=== PATIENT | female | born 2000 | race Hispanic/Latino ===

== ENCOUNTER 2025-01-31 09:22 | Emergency (ER) | payer OTHER, SELFPAY ==
--- NOTE | ~2025-01-31 | CT_ITS ---
EXAM: CT abdomen pelvis w con INDICATION: Pain. Bright red blood per rectum, 2 episodes. COMPARISONS: None. PROCEDURE: 100 mL of Isovue 300 was injected IV. Enteric contrast given. Dose reduction technique(s) used. FINDINGS: Lower chest: Lung bases are clear. Body wall: No abnormality demonstrated. ABDOMEN: Liver: Normal size and relatively homogeneous parenchyma. Possible mild fatty infiltrate. There is a tiny cyst near the dome. Gallbladder: No calcified gallstones. No bile duct dilatation. Spleen: Normal. Adrenals: Normal. Pancreas: No mass or adjacent stranding. Normal caliber duct. Kidneys: No calculus, mass or hydronephrosis. Aorta: Normal caliber. IVC: Normal. Retroperitoneum: No adenopathy. Stomach and visualized esophagus: No abnormality. PELVIS: Reproductive Organs: No pelvic mass. Bladder: No nodule or calculus. There is a urachal remnant. Colon: Collapsed from a abrupt point in the distal transverse colon all the way to the rectum. There are suggestion of wall edema. Small Bowel: No dilatation or wall thickening. Appendix: Normal. Mesentery: No adenopathy. Peritoneum: No free fluid or free air. Bones: No destructive lesion. IMPRESSION: The colon may just be collapsed in the pattern described. In the current clinical scenario, consideration should be given to ulcerative colitis. Reviewed, dictated and finalized at location A. IMPRESSION: The colon may just be collapsed in the pattern described. In the current clinic al scenario, consideration should be given to ulcerative colitis.
[2025-01-31 09:29] VITALS: BP 113/77; PULSE 76; RESP 14; TEMP 36.8; O2SAT 99
--- OUTSIDE RECORDS SUMMARY | 2025-01-31 09:49 | XMS_ITS | Data Portability ---
Author Organization [facility] Address [address] [place] [address] Assessment Encounter Date Assessment Date Assessment LastModified by Organization Details LastModified Time 11/17/2022 11/17/2022 Annual gynecological exam performed. Patient will come back in a year unless there are new symptoms. [email or web address] Not available 11/17/2022 10:26:35 04/11/2024 04/11/2024 Annual gynecological exam performed. Patient will come back in a year unless there are new symptoms. Not available 04/11/2024 16:37:14 Plan of Treatment Reminders Order Date Submit Date Provider Last Modified By Organization Details Last Modified Time Details Appointments None recorded . Lab None recorded . Referral None recorded . Procedures None recorded . Surgeries None recorded . Imaging None recorded . Medication Orders Fe 24 1 mg-20 mcg (24)/75 mg (4) tablet 025 04/11/19 25 [email or web address], [address], 5 16:11:20 Septemberl Fe 24 1 mg-20 mcg (24)/75 mg (4) tablet 023 02/18/20 23 [email or web address] [facility], [address] [place] [address], [address], 5 16:40:03 Septemberl Fe 24 1 mg-20 mcg (24)/75 mg (4) tablet 023 11/18/19 [id number], [address], [place], [place], [id number], 16:40:03 Patient TargetsNo targets recorded. Patient InstructionsNo instructions recorded. Reason for Referral None Reported. Results Created Date Observation Date Name Description Value Unit Range Abnormal Flag Note LastModifiedBy Organization Detail LastModifiedTime 11/18/1911/17/2022 CT/GC AND TRICH OMONA S VAGIN DIMA (RRNA ), URINE chlamydia trachomatis, PCR NEGATI VE negati ve Not Available [facility] (Lab) [address] [facility], [place], [address], 11/18/2022 13:56:22 11/18/19 23 11/17/2022 CT/GC AND TRICH OMONA S VAGIN DIMA (RRNA ), URINE neisseria gonorrhoeae, PCR NEGATI VE negati ve Not Available [facility] (Lab) [address] [facility], [place], [address], 11/18/2022 13:56:22 11/18/19 23 11/17/2022 CT/GC AND TRICH OMONA S VAGIN DIMA (RRNA ), URINE trichomonas vaginalis ribosomal RNA (rrna) NEGATI VE negati ve Not Available [facility] (Lab) [address] [facility], [place], [address], 11/18/2022 13:56:22 11/18/19 23 11/17/2022 pregn avinash test, urine HCG negati ve Not Available [facility] [address], [place], [address], 11/17/2022 12:22:19 04/11/19 25 04/11/2024 IMAGE GUIDE D PAP, REFLE X HPV IF ASCUS ONLY image guided Pap, reflex HPV ASCUS only SEE RESULT S BELOW CASE REPOR T: Cytol ogy Gynec ologi jeanette Repor t Case: [id number] Autho tysonn g Provi elias: Siria Samuels NP Colle cted: 04/11 1722 Order ing Locat ion: [place] Patho kaycee Recei chencho: 04/12 1007 First Tremaynee n: Sonya Saleh, CT Speci men: Scree giselle Pap - Image d, Cervi x STATE MENT OF ADEQU ACY: Satis facto ry for evalu ation Trans forma tion zone compo nent prese nt ----- ----- ----- ----- ----- ----- ----- ----- ----- ----- ----- ----- ----- ----- ----- ----- ----- ---- FINAL DIAGN OSIS: Negat salome for Intra epith elial Alcides oneill or Megan dunlap (NIL) . Shift in levi sugge stive of bacte rial vagin osis. Elect zeferino martino by ROGER Colbert on 2024 at 0817 [employer] ----- ----- ----- ----- ----- ----- ----- ----- ----- ----- ----- ----- ----- ----- ----- ----- ----- ---- COMME NT: This speci men was revie wed by a Cytot echno logis t and/o r Patho logis t (as indic ated in this repor t) after evalu ation using the Thinp rep Imagi ng Syste m. CLINI JEANETTE INFOR MATIO N: Menst rual Statu s: LMP (if appli cable ): Clini jeanette Histo ry/Pr eviou s Pap: Type of Neopl laxmi (if appli cable ): Signi fican t Clini jeanette Findi ngs: Other Histo ry: Hormo mikael (if appli cable ): PAP EDUCA ARTEM L NOTE: The Pap Test is a scree giselle test with an inher ent false negat salome rate. Liqui d-bas ed sampl ing august decre ase, but will not elimi caitlin, false negat salome resul ts. A negat salome resul t does not precl ude the prese nce and/o r devel opmen t of disea se, since the prese nce of abnor mal cells in the sampl e depen ds on the locat ion of the lesio n and sampl ing techn ique. Wilfred nued regul ar scree giselle is the best metho d of cance r preve ntion . If repor artur cytol ogic findi ng do not corre late with physi jeanette and/o r histo rical findi ngs, furth er inves tigat ion is recom molly d, as clini lokesh marquita nted. Not Available [facility] (Lab) [address] [facility], [place], [address], 04/19/2024 09:21:19 04/11/19 25 04/11/2024 TRICH OMONA S VAGIN DIMA (RRNA ) trichomonas vaginalis ribosomal RNA (rrna) Negati ve negati ve Not Available [facility] (Lab) [address] [facility], [place], [address], 04/19/2024 09:21:19 04/11/19 25 04/11/2024 CT/GC (EFRAIN) , THINP REP VIAL chlamydia trachomatis, PCR Negati ve negati ve Not Available [facility] (Lab) [address] [place], [address], 04/19/2024 09:21:20 04/11/19 25 04/11/2024 CT/GC (EFRAIN) , THINP REP VIAL neisseria gonorrhoeae, PCR Negati ve negati ve Not Available [facility] (Lab) [address] [place], [address], 04/19/2024 09:21:20 Result Notes None recorded. Medical Equipment None Reported. Allergies No known drug allergies Medications Name Sig Start Date Stop Date Status Note LastModified by Organization Details LastModified Time clindamycin HCl 300 mg capsule TAKE 1 CAPSULE BY MOUTH THREE TIMES DAILY FOR 10 DAYS 04/11 completed Not Available Not Available Not Available prednisone 20 mg tablet TAKE 2 TABLETS BY MOUTH DAILY FOR 5 DAYS 04/11 completed Not Available Not Available Not Available methylpredn isolone 4 mg tablets in a dose pack FOLLOW PACKAGE DIRECTION S 11/17 completed Not Available Not Available Not Available amoxicillin 875 mg-potassiu m clavulanate 125 mg tablet TAKE 1 TABLET BY MOUTH EVERY 12 HOURS FOR 10 DAYS active Not Available Not Available No t Available Aurovela 24 Fe 1 mg-20 mcg (24)/75 mg (4) tablet TAKE 1 TABLET BY MOUTH EVERY DAY active Not Available Not Available No t Available Vitals Date Recorded Body height Body mass index (BMI) Body weight Systolic And Diastolic Provider Name and Address Organization Details Last Updated DateTime 04/11/2024 154.94 cm 22.7 kg/m2 71522.52 g 106/73 mm[Hg] Laura Castanoney [facility] 04/11/2024 16:39:55 Date Recorded Body height Body mass index (BMI) Body mass index (BMI) [Percentile] Per age and sex Body weight Systolic And Diastolic Provider Name and Address Organization Details Last Updated DateTime 11/17/2022 154.94 cm 22.1 kg/m2 54 % 36039.3 1 g 109/72 mm[Hg] Elena [facility] 3 10:02:29 Date Recorded Body height Body mass index (BMI) [Percentile] Per age and sex Body mass index (BMI) Body weight Systolic And Diastolic Provider Name and Address Organization Details Last Updated DateTime 02/17/2023 154.94 cm 46 % 21.4 kg/m2 33493.9 4 g 104/72 mm[Hg] [facility] 09:16:57 Social History Question Answer Notes LastModified by Organizat ion Details LastModified Time Tobacco Smoking Status Never Smoker [facility] 02/17/2023 09:09:42 Are You Blind Or Do You Have Difficulty Seeing? No Information n ot available 11/17/2022 What Is Your Level Of Caffeine Consumption? Occasional Information not available 11/17/2022 How Much Tobacco Do You Chew? None Information not available 11/17/2022 In The 14 Days Before Symptom Onset, Have You Had Close Contact With A Laboratory-confirm ed COVID-19 While That Case Was Ill? No Information n ot available 11/17/2022 In The 14 Days Before Symptom Onset, Have You Had Close Contact With A Person Who Is Under Investigation For COVID-19 While That Person Was Ill? No Information not available 11/17/2022 Have You Been To An Area Known To Be High Risk For COVID-19? No Information not available 11/17/2022 Are You Deaf Or Do You Have Serious Difficulty Hearing? No Information not available 11/17/2022 What Type Of Diet Are You Following? REGULAR Information n ot available 11/17/2022 What Is The Highest Grade Or Level Of School You Have Completed Or The Highest Degree You Have Received? [id number] Information not available 11/17/2022 Are There Any Guns Present In Your Home? Yes Information not available 11/17/2022 Do You Use Protection During Sex? Always Information not available 11/17/2022 Do You Use Your Seat Belt Or Car Seat Routinely? Yes Information not available 11/17/2022 Do You Have Smoke And Carbon Monoxide Detectors In Your Home? Yes Information not available 11/17/2022 How Much Tobacco Do You Smoke? No Information not available 11/17/2022 Do You Use Sunscreen Routinely? Yes Information not available 11/17/2022 How Many Years Have You Smoked Tobacco? 0 Information not available 11/17/2022 Have You Used IV Drugs? No Information not available 11/17/2022 Sex: Unknown Functional Status Question Answer Note LastModified by Organizat ion Details LastModified Time Do you use any illicit or recreational drugs? No Information not available 11/17/2022 What is your level of alcohol consumption? None Information not available 11/17/2022 Are you able to walk independently without assistance or assistive devices? YESWOREST Information not available 11/17/2022 What is your occupation? Student Information not available 11/17/2022 What is your exercise level? Occasional Information not available 11/17/2022 Mental Status Question Answer Note LastModified by Organization D etails LastModified Time Do you feel stressed (tense, restless, nervous, or anxious, or unable to sleep at night)? [id number] Information not available 11/17/2022 Family History Relationship Description Onset Age of this Age Resolved Age Notes LastModified by Organization Details LastModified Time Maternal Grandmother Malignant neoplasm of breast Not available 2022 10:02:37 Maternal Grandmother Malignant neoplasm of cervix uteri Not available 10:02:37 Maternal Grandmother Malignant neoplasm of uterus Not available 2022 10:02:37 Maternal Grandmother Heart disease Not available 2022 10:02:37 Medical History Condition Response Allergies (Food, seasonal, environmental ) N Other N Breast Cancer N Drug/Latex Allergies/Reactions N Blood Transfusion N Dermatologic Disorders N Lung Disease N Defects or Inherited Disease N Breast Problem N Gestational Diabetes N Hematologic disorders N Anesthesia Complications N History of STI N Deep Vein Thrombosis N Polycystic ovary syndrome N Anxiety Disorder N Autoimmune disease N Arthritis N Infertility N Polyps N Acid Reflux (GERD) N History of abnormal pap N Cancer N Stroke N Varicosities N Neurologic/Epilepsy N Endometriosis N High Cholesterol N Headaches N Fibromyalgia N Kidney Disease N Heart Problems N Kidney or Bladder Problems N Thyroid Problems N GI Problems N Eating Disorder N Anemia N Art (IVF or FET) N Psychiatric Illness N Ovarian Cancer N Diabetes N Pulmonary (TB, Asthma) N Hepatitis/Liver Disease N No Past Medical History Y Eczema N Urinary Tract Infection N Abuse/Domestic Violence N Asthma N Trauma/Violence N Depression/ depression N Heart Disease N Pre-Eclampsia N Hypertension N Osteoporosis N Thrombophilias N Gynecological History Statement/Question Response Flow Moderate Date of LMP 04/03/2024 On BCP's at Conception? N N Was last menstrual period normal Y STIs/STDs N HPV Vaccine Y Duration of Flow (days) 5 Current Control Method None Are cycles usually normal Y Date of Last Colonoscopy Frequency of Cycle (Q days) 30 Sexually Active? Y Menses Monthly Y Age of first menstrual cycle 16 Date of Last Pap Smear Sexual Problems? N Desired Control Method BCPs LMP Approximate N Obstetrics History GPAL:G 0 P 0 0 0 0 Past Encounters Encounter ID Performer Location Encounter Start Date Encounter Closed Date Diagnosis/Indication Diagnosis SNOMED-CT Code Diagnosis ICD10 Code Diagnosis IMO Codes Diagnosis Note [id number] ALEJO [facility] [address] [address] 11/17/2022 09:54:27 11/17/2022 10:28:20 Gynecologic examination 61637004 Z01.419 Take Calcium with Vitamin D 1200mg daily if not receiving in daily diet. It is strongly advised to have an annual flu shot and up can obtain at most pharmacies . If you have not had a TDap shot in the last 10 years you should obtain one as well. Discussed with patient & provided with informatio n regarding Gardisil vaccine to prevent the 4 strains for HPV that cause cervical cancer. Encourage safe sexual practices, to use condoms and limit partners if not already in a monogamous relationsh ip. Do monthly self breast exams. BRCA testing is now available for patients with strong genetic history of female cancer. If interested contact the office. Engage in daily exercise of low impact aerobic exercise 45-60 minutes 4-5 times weekly. Avoid tobacco, illicit drugs, and alcohol. This lifestyle behavior pattern will lead to less health conditions and longer life span. If BMI greater than 25 weight watchers or dietary consult advised. Pap smear is not recommende d prior to the age of 21. If you have any concerns, pelvic, or vaginal problems we can discuss testing. Patient received above instructio ns, and questions have been answered. If you have any questions please call or respond to this email. Patient was made aware of the patient portal and may obtain a paper copy of today's plan if desired.Yoel p due age 23yoSTD Screen urine sentGeneti c Screen discussedC olon Screen naDexa Screen naRoutine Labs Javier discussed Contracept ion care management 904784068 Z30.9 Discussed all control options in great detail. Pt would like to start ocp. She is aware of the risks and benefits. She does not have any medical condition that is contraindi cated with the use of estrogen containing control. Pt will start her pills on the first monday following the start of her period. She is aware it is not effective for control the first month. She is also aware of the importance of taking at the same time every day. Encouraged use of condoms as the pill does not protect against STD's. Will return in 3 months for med check. Consent was read and signed. Pt verbalized understand ing.https: //[facility]. org/guides /-con trol-pills /#https:// [facility].or g/guides/b irth-contr ol-pill-in structions / [id number] [facility]chan [facility] [address],[place] [address] 02/17/2023 09:08:56 02/17/2023 09:41:09 Contraception care management 658730096 Z30.9 Patient is here today for a medicaton check of control. She voices goals of therapy have been met with use of this therapy. She denies neg side effects. She is eating, drinking, sleeping well; moods are stable & periods are well regulated. Wishes to continue this method of BC. Appropriat e to continue this medication . Time spent in visit is a total of 15 mins with at least 50% of visit consisting of counseling and review of plan of care. [id number] Siria Samuels [facility] [address],[place] [address] 04/11/2024 16:29:33 04/11/2024 16:56:16 Gynecologic examination [id number] Z01.419 WWEBC - OCP, refills sent x 12 months, r/b/a reviewedPa p - done todaySTI screen - declinedRo utine labs - PCPRTC in 1 yr or sooner if needed It is strongly advised to have an annual flu shot and up can obtain at most pharmacies . If you have not had a TDap shot in the last 10 years you should obtain one as well. Discussed with patient & provided with informatio n regarding the HPV vaccine if applicable . Encourage safe sexual practices, to use condoms and limit partners if not already in a monogamous relationsh ip. Do monthly self breast exams. BRCA testing is now available for patients with strong genetic history of female cancer. If interested contact the office. Engage in regular exercise. Avoid tobacco and illicit drugs. This lifestyle behavior pattern will lead to less health conditions and longer life span. If BMI greater than 25 dietary consult advised. Questions answered. [facility] [id number] Z30.9 Health Concerns Section Related Observation LastModified by Organization Detai ls LastModified Time None Recorded Concern Status LastModified by Organization Details LastModified Time None Recorded Advance Directives Directive None Recorded Payers Insurance Date Sequence Insurance Name Policy Number Policy Rader Covered Member ID Rader Member ID Guarantor Name 04/15/2024 1 [facility] [id number] Susan Sneed [id number] Jimenez Miles 01/10/2024 1 [employer] [id number] F Susan Solis Nedra [id number] Jimenez Miles Notes Date Note Type Note Provider Name and Address Organization Details Recorded Time 3 text/html Annual GYNReported by PatientHistoryFor history, patient reportsno gynecologic complaints.Genitourinary symptomsFor menstrual cycle, patient reportsnormal menses. For urinary symptoms, patient reportsno hematuriaandno incontinence. For vulva, patient reportsno genital lesion. For vagina, patient reportsnormal vaginal discharge.Breast symptomsFor breast, patient reportsno breast pain,no breast lump, andno nipple discharge.ContraceptionFo r current contraception, patient reportscondoms.Endocrine symptomsFor sexual complaints, patient reportsno sexual complaints,no pain during intercourse, andnormal libido. For menopausal symptoms, patient reportsno menopausal symptomsandnormal vaginal lubrication.Psychological symptomsFor psychological symptoms, patient reportsno depression,no anxiety, andno pmdd.Preventative measuresFor preventive measures, patient reportsencourage self breast examination,encourage regular exercise,encourage no tobacco use, andencourage regular mammograms starting age 40. Kanchan Mojiac [facility] [address], [place], [address], [facility] 11/17/2022 10:28:05 3 text/html ROS as noted in the HPI Here today for medication check of BCP Kanchan Mojica [facility] [address], [place], [address], [facility] 02/17/2023 09:35:47 text/html Annual GYNReported by PatientGenitourinary symptomsFor menstrual cycle, patient reportsnormal menses. For urinary symptoms, patient reportsno hematuriaandno incontinence. For vulva, patient reportsno genital lesion. For vagina, patient reportsnormal vaginal discharge.Breast symptomsFor breast, patient reportsno breast pain,no breast lump, andno nipple discharge.ContraceptionFo r current contraception, patient reportssatisfied with current contraceptionandoral contraceptives.Endocrine symptomsFor sexual complaints, patient reportsno sexual complaints,no pain during intercourse, andnormal libido. For menopausal symptoms, patient reportsno menopausal symptomsandnormal vaginal lubrication.Psychological symptomsFor psychological symptoms, patient reportsno depression,no anxiety, andno pmdd.Preventative measuresFor preventive measures, patient reportsencourage self breast examination,encourage regular exercise,encourage no tobacco use, andencourage regular mammograms starting age 40.23yowweno pap hxBC - OCPdenies h/o DVT/PE, HTN, Stroke/RI, cancer, liver disease, or migraine with aura about to graduate, political science. On golf team, wants to go to law school ALEJO [facility] [address], [place], [address], [place] [facility] 04/11/2024 16:55:26 OBGyn Episode No OBEpisode recorded.
--- OUTSIDE RECORDS SUMMARY | 2025-01-31 11:35 | XMS_ITS | Clinical Summary ---
Author Organization [facility] at the Medical Office Building Address [address] [place] [address] Care Team Providers Care Gas Cutter Name Role Phone Gareth Simon MD Primary Care Provider [phone] Allergies No known active allergies Medications No known medications Active Problems Problem Noted Date Diagnosed Date Acute bilateral low back pain without sciatica 1 Assessment & Plan (01/28/2021 1:47 PM CDT): Overall Condition New Acute Problem. Treatment: New Medication: As prescribed below. and Recommended Therapeutic Lifestyle Modification Follow up PRN Encounter for annual health examination 10/24/19 Assessment & Plan (10/24/2019 4:24 PM CDT): Health Promotion: Oral health brush teeth - small amount of flouride toothpaste, dental appointment. Sexual health sexual development, change in body structure , safe sex , sexually transmitted disease education , use of condoms. Smoke exposure. Personal hygiene. Skin/UV protection. Injury Prevention/Safety: Install and/or check smoke alarms regularly. Water safety supervised water activities , water safety, swim with a heather. Supervision matches/poisons/guns. Playground safety. Bike safety always wear helmet , wear protective knee/elbow pads , appropriate footwear. Drugs/alcohol/tobacco unsafe habits discussed. Drivers education discussed driving under the influence of alcohol/drugs , obeying driving rules , safe driving discussed. Nutrition Counseling: Healthy food choices: no forced foods , family meals as often as possible, limit or eliminate junk food, adequate calcium , adequate iron containing foods. Weight management:. Social/Behavioral Counseling: Opportunity to explore. Discipline rules of behavior. Encourage reading good reading habits - self reading. Praise good behavior. Family time play time, short excursions. TV/game time limit and control TV and game time. Activities/Duties responsible for some household activities , organized sports/activities. After school child support officer. School issues classroom review , homework supervision. Friends knows donaldo friends/families. Hobbies. Relationships advised to cultivate safe relationships , caution about peer pressure , teen support groups , how to say no , abstinence. Deceptive ads. Violence Prevention: Gun safety. Gang membership and violence. Exposure to influenza 05/13/2019 Assessment & Plan (05/13/2019 4:26 PM HEEL CUTTER): Influenza test was negative for type A & B influenza. Started on Tamiflu 75 mg once daily for the next 10 days since due to recent exposure to influenza B. If becomes symptomatic, instructed to increase clear liquids, rest, and vitamin C in diet, and use OTC meds to treat symptoms as needed. Recommended follow-up with PCP as needed. Viral upper respiratory tract infection 05/13/19 20 Assessment & Plan (05/13/2019 4:27 PM HEEL CUTTER): Resolving URI, not currently taking any medications for her symptoms of cough, nasal congestion, and rhinorrhea. OTC medications as directed as needed for symptoms management. Immunizations Immunization Administration Dates Next Due DTaP 05/26/2003,03/17/2003,01/14/2003 HPV9 07/19/2017 Hep B / HiB 01/14/2003 Hep B, Adolescent or Pediatric 11/18/2003,2002 HiB 11/18/2003,05/26/2003,03/17/2003 IPV 11/18/2003,03/17/2003,01/14/2003 Meningococcal MCV4P (Menactra) 10/15/2019 Pneumococcal Conjugate 7-Valent 05/26/2003,03/17,01/14/2003 Family History Medical History Relation Name Comments No Known Problems Father No Known Problems Mother Relation Name Status Comments Father Alive Mother Alive Social History Tobacco Use Types Packs/Day Years Used Date Smoking Tobacco: Never Smokeless Tobacco: Never Alcohol Use Standard Drinks/Week Comments Never 0 (1 standard drink = 0.6 oz pur e alcohol) AUDIT-C Answer Date Recorded Q1: How often do you have a drink containing alc ohol? Never 10/15/2019 Average Number of Drinks Not on file 020 Frequency of Binge Drinking Not on file 10/01 PHQ-2 Answer Date Recorded PHQ-2 Total Score (If total score is 3 or more points, staff should administer the PHQ-9) 0 11/03/2021 Personal Safety Answer Date Recorded Getting School Help Needed Not on file 06/17 Comments No Sex and Gender Information Value Date Recorded Sex Assigned at Not on file Legal Sex Female 12:00 AM HEEL CUTTER Gender Identity Not on file Sexual Orientation Not on file Obstetrics History Last Filed Vital Signs Vital Sign Reading Time Taken Comments Blood Pressure 101/69 11/03/2021 8:39 AM CDT Pulse 93 11/03/2021 8:39 AM CDT Temperature 36.8 C (98.2 F) 11/03/2021 8:39 AM CDT Respiratory Rate 18 11/03/2021 8:39 AM CDT Oxygen Saturation 100% 11/03/2021 8:39 AM CDT Inhaled Oxygen Concentration - - Weight 52 kg (114 lb 11.2 oz) 11/03/2021 8:39 AM CDT Height 157.5 cm (5' 2) 11/03/2021 8:39 AM CDT Body Mass Index 20.98 11/03/2021 8:39 AM CDT Plan of Treatment Health Maintenance Due Date Last Done Comments Cervical Cancer Screening 2002 Chlamydia and Gonorrhea (GC/CT) Screening 2002 Hepatitis C Screening 2002 DTaP/Tdap/Td Vaccine (4 - Tdap) 2013 05/26/2003, 03/17/2003, 01/14/2003 HPV Vaccines (2 - 2-dose series) 01/18/2018 07/19/2017 Meningococcal B Vaccine (1 o f 2 - Standard) 2018 Depression Screening 11/03/2022 11/03/2021, 11/03/2021, 10/15/2019 Regular Well Visit/Exam 18-64 11/03/2022 11/03/2021 Covid-19 Vaccine (2 - 2024-2 6 season) 2024 03/31/2021, 06/09/2020 Influenza Vaccine (#1) 2024 Pneumococcal vaccine <65 Aged Out 004, 03/17/2003, 01/14/2003 No longer eligible based on patient's age to complete this topic Hepatitis B Screening Completed 11/18/2003 , 01/14/2003, 2002 Varicella Vaccines Discontinued Insurance [facility] [place] [id number] [employer] [facility] [place] [address] Care Teams Gas Cutter Relationship Specialty Start Date End Date Gareth Simon MD PCP - General Family Medicine 01/28/21
--- NOTE | 2025-01-31 11:38 | ED_ITS ---
HPI - Abdominal Pain General Chief Complaint: Abdominal Pain Stated Complaint: blood in stool and lower abd pain Time Seen by Provider: 01/31/25 11:09 Source: patient Mode of arrival: ambulatory Limitations: no limitations History of Present Illness HPI narrative: This is a 24-year-old female no significant past medical history presents to the ED for lower abdominal pain and blood in stool. Patient states that she began to have lower abdominal pain yesterday at 10:00 p.m. she felt that this may be constipation so she was taking a small laxative for this this morning. Last bowel movement was about 8 hours ago. She has had multiple episodes of hematochezia since then. She has also had nausea but no vomiting. Denies fevers, chills, chest pain, shortness of breath. No known family history of IBD. Related Data Allergies Allergy/AdvReac Type Severity Reaction Status Date / Time No Known Allergies Allergy Verified 01/31/25 09:39 Review of Systems 2 Review of Systems: Gen.: Denies fevers or chills Eyes: Denies eye pain or visual change ENT: Denies congestion Respiratory: Denies shortness of breath or cough CV: Denies chest pain or palpitations GI: As per HPI denies burning, urgency, frequency or hematuria Musculoskeletal: Denies back pain or muscle pain Neuro: Denies numbness, tingling, weakness or focal weakness Skin: Denies rash Except as documented, all other systems reviewed and negative Exam 2 Narrative: APPEARANCE: No acute distress, nontoxic, resting in bed EYES: EOMI HEENT: Normocephalic, atraumatic, OMM RESPIRATORY: No respiratory distress Clear to auscultation bilaterally with no rhonchi wheezing or rales. CARDIOVASCULAR: Regular rate and rhythm without murmurs rubs or gallops. ABDOMINAL: Soft, mild suprapubic tenderness to palpation, nondistended, no rebound or guarding Rectal: No the blood noted to the anus, no hemorrhoids MUSCULOSKELETAl: Moves all extremities. No clubbing, cyanosis or edema. NEURO: Awake and alert. Following commands, speech normal, no focal deficits SKIN:: Warm, dry. No rashes lesions or abrasions PSYCHIATRIC: Normal affect/mood, Course Vital Signs Vital signs: Vital Signs Temperature 98.2 F 01/31/25 09:29 Pulse Rate 76 01/31/25 09:29 Respiratory Rate 14 01/31/25 09:29 Blood Pressure 113/77 01/31/25 09:29 Pulse Oximetry 99 01/31/25 09:29 Oxygen Delivery Room Air 01/31/25 09:29 Temperature 98.1 F 01/31/25 14:12 Pulse Rate 73 01/31/25 14:12 Respiratory Rate 16 01/31/25 14:12 Blood Pressure 122/90 01/31/25 14:12 Pulse Oximetry 100 01/31/25 14:12 Oxygen Delivery Room Air 01/31/25 09:29 MDM - Abdominal Pain MDM Narrative Medical decision making narrative: 24-year-old female Presenting for abdominal pain and rectal bleeding. On initial evaluation patient was in no acute distress afebrile, hemodynamic stable. Differentials include but are not limited to: Ovarian torsion, ovarian cyst, ectopic , Diverticulitis, constipation, ureterolithiasis, enterocolitis, colitis, obstruction, cancer Notable exam findings: Tenderness palpation of the left lower quadrant. Rectal exam showed no external hemorrhoids. Notable lab findings: Mild leukocytosis 11.6. CMP without significant abnormalities. UA likely a contaminated specimen. Notable imaging findings: CT abdomen/pelvis potentially consistent with ulcerative colitis Symptoms and CT findings are potentially concerning for ulcerative colitis. This would likely be considered more a mild flare. She will require further evaluation with GI. Patient was given a referral to Dr. Fountain, GI, for further evaluation. Patient was agreeable to this plan. Given strict return precautions. Medical Records Attestation: I reviewed the patient's medical records. Lab Data Attestation: I reviewed the patient's lab results. 01/31/25 11:43 01/31/25 11:43 Labs: Lab Results 01/31/25 01/31/25 Range/Units 11:37 11:43 WBC 11.6 H (4.5-10.0) K/mm3 RBC 4.82 (4.2-5.4) M/mm3 Hgb 14.7 (12.0-15.0) g/dL Hct 43.5 (37.0-47.0) % MCV 90.2 (80-100) fl MCH 30.5 (26-34) pg MCHC 33.8 (32-36) g/dl RDW 11.9 (11.5-14.5) % Plt Count 313 (150-375) k/mm3 MPV 10.3 (7.4-10.4) fl Immature Gran % (Auto) 0.3 (0-0.5) % Neut % (Auto) 79.7 H (45.5-73.1) % Lymph % (Auto) 15.3 L (18.3-44.2) % Moody % (Auto) 4.2 (2.6-8.5) % Eos % (Auto) 0.2 (0-4.4) % Baso % (Auto) 0.3 (0.2-1.2) % Lymph # (Auto) 1.77 (0.9-3.2) K/mm3 Moody # (Auto) 0.5 (0.1-0.6) K/mm3 Eos # (Auto) 0.0 (0-0.3) K/mm3 Baso # (Auto) 0.0 (0.0-0.1) K/mm3 Abs Immat Gran (auto) 0.04 H (0.00-0.031) K/mm3 Absolute Neuts (auto) 9.2 H (1.3-6.7) K/mm3 Absolute Nucleated RBC 0.000 (0.0-0.012) K/mm3 Nucleated RBC % 0.0 (0.0-0.2) % Sodium 138 (137-145) mmol/L Potassium 4.0 (3.4-5.0) mmol/L Chloride 100 (98-107) mmol/L Carbon Dioxide 28 (22-30) mmol/L Anion Gap 10 (4-12) mmol/L BUN 7 (7-17) mg/dL Creatinine 0.65 L (0.7-1.0) mg/dL Estim Creat Clear Calc 88 ml/min Estimated GFR > 60 (59 - ) Glucose 107 (65-110) mg/dL Calcium 9.7 (8.4-10.2) mg/dL Total Bilirubin 0.7 (0.2-1.3) mg/dL AST 28 (14-36) U/L ALT 17 (6-35) U/L Alkaline Phosphatase 73 (38-126) U/L Total Protein 9.0 H (6.3-8.2) g/dL Albumin 5.1 (3.5-5.1) g/dL Urine Color Yellow (Yellow) Urine Appearance Cloudy H (Clear) Urine pH 6.0 (5.0-9.0) Ur Specific Hannah 1.015 (1.001-1.035) Urine Protein Negative (Negative) mg/dL Urine Glucose (UA) Negative (Negative) mg/dL Urine Ketones Negative (Negative) mg/dL Ur Blood (Man) Negative (Negative) Urine Nitrate Negative (Negative) Urine Bilirubin Negative (Negative) Urine Urobilinogen 0.2 (<2.0) mg/dL Leukocyte Esterase Rfl 2+ H (Negative) ANASTASIIA/UL Urine RBC 0-2 (0-2) /hpf Urine WBC 21-50 H (0-3) /hpf Ur Squamous Epith Cells Moderate (Few) /hpf Urine Bacteria 2+ H /hpf Urine Casts 0-2 POC Urine HCG, Qual Negative (Negative) Imaging Data Attestation: I personally reviewed and interpreted this imaging study as follows: Radiologist's impression: ITS Impressions Abdomen/Pelvis CT 01/31/25 13:13 IMPRESSION: The colon may just be collapsed in the pattern described. In the current clinical scenario, consideration should be given to ulcerative colitis. Discharge Plan Discharge Clinical Impression: Rectal bleeding Abdominal pain Qualifiers: Abdominal location: left lower quadrant Qualified Code(s): R10.32 - Left lower quadrant pain Patient Disposition: Home Condition: Stable Instructions: Antibiotic Form, Abdominal Pain (ED) Additional Instructions: Labs are reassuring, your CT scan may be consistent with ulcerative colitis. This will need to be investigated further by a upsetting machine operator. You were given a referral to Dr. Fountain, call his office to schedule appointment. You may take Tylenol and ibuprofen for your pain. Your given a prescription for Zofran to take this as prescribed. Return to the ED for any new or worsening symptoms. Patient Language: Syriac Prescriptions: New ondansetron 4 mg tablet,disintegrating 4 mg PO Q8H PRN (Reason: nausea and vomiting) Qty: 14 0RF Follow-up/Referrals: PHYSICIAN NOT ON STAFF,NONSTAFF [Primary Care Provider] Abel Fountain MD [Physician, Gastroenterology]
[2025-01-31 11:53] LABS: BEDSIDEPREGUCG Negative (Negative)
[2025-01-31 12:10] LABS: Hematocrit 43.5 % (37.0-47.0); Hemoglobin 14.7 g/dL (12.0-15.0); Immature Granulocyte Percent A 0.3 % (0-0.5); Lymphocytes Absolute Auto 1.77 K/mm3 (0.9-3.2); Mean Corpuscular HGB Conc 33.8 g/dl (32-36); Mean Corpuscular Hemoglobin 30.5 pg (26-34); Mean Corpuscular Volume 90.2 fl (80-100); Nucleated Red Blood Cells Absolute Auto 0.000 K/mm3 (0.0-0.012); Nucleated Red Blood Cells Perc 0.0 % (0.0-0.2); Platelet Count Result 313 k/mm3 (150-375); Red Blood Count 4.82 M/mm3 (4.2-5.4); White Blood Count 11.6 K/mm3 (4.5-10.0)
[2025-01-31 12:25] LABS: Alanine Aminotransferase 17 U/L (6-35); Albumin Level 5.1 g/dL (3.5-5.1); Alkaline Phosphatase 73 U/L (38-126); Anion Gap 10 mmol/L (4-12); Aspartate Amino Transferase 28 U/L (14-36); Bilirubin,Total 0.7 mg/dL (0.2-1.3); Blood Urea Nitrogen 7 mg/dL (7-17); Calcium 9.7 mg/dL (8.4-10.2); Carbon Dioxide 28 mmol/L (22-30); Chloride 100 mmol/L (98-107); Estimated CRCL calculation 88 ml/min; Estimated Glomerular Filt Rate > 60; Glucose 107 mg/dL (65-110); Potassium 4.0 mmol/L (3.4-5.0); Sodium 138 mmol/L (137-145); Total Protein 9.0 g/dL (6.3-8.2)
[2025-01-31 12:31] LABS: Add Urine Microscopic? YES; Appearance Urine Cloudy (Clear); Glucose Urine UA Negative (Negative); Leukocyte Esterase Ur 2+ LEU/UL (Negative); Nitrate Urine Negative (Negative); Non Pathogenic Casts 0-2; Specific Grav Ur 1.015 (1.001-1.035)
[2025-01-31 14:12] VITALS: BP 122/90; PULSE 73; RESP 16; TEMP 36.7; O2SAT 100
== END 2025-01-31 14:14 | disposition home or self-care (01) ==
PROVIDERS: Emergency Provider Student in an Organized Health Care Education/Training Program
DX: R10.32 Left lower quadrant pain (principal); K62.5 Hemorrhage of anus and rectum
CPT/HCPCS: 36415; 74177; 80053; 81001; 81025; 85025; 99284; Q9967